=== PATIENT | male | born 1970 | race Caucasian/White ===

== ENCOUNTER 2023-11-26 17:20 | Emergency (ER) | payer OTHER, SELFPAY ==
[2023-11-26 17:23] VITALS: BP 172/95; PULSE 92; RESP 18; TEMP 36.7; O2SAT 99; BMI 27.1
--- NOTE | 2023-11-26 18:34 | CT_ITS ---
The [address] [address] Patient Name: DARIO WASHBURN MRN: [id number] date: 1970 Sex: M Assigned Patient Location: ER Current Patient Location: ED.MAIN Accession/Order Number: [id number] Exam Date: 11/26/2023 18:50 Report Date: 11/26/2023 19:22 At the request of: SHAY MOBLEY Procedure: CT lumbar spine wo con CT LUMBAR SPINE WITHOUT CONTRAST. HISTORY: back pain/ left foot drop COMPARISON: None. TECHNIQUE: CT of the lumbar spine without contrast. Sagittal and coronal reformatted images created. FINDINGS: BONY ALIGNMENT: There is normal lumbar lordosis. No spondylolisthesis. VERTEBRAL BODY: No acute fracture of the lumbar vertebral bodies. Intervertebral disc spaces are intact. CENTRAL CANAL/NEURAL FORAMINA: No high-grade central canal stenosis. There is moderate L4-5 central canal stenosis secondary to disc protrusion. There is severe left L4-5 neural foraminal stenosis secondary to disc protrusion/extrusion.. There are multilevel disc bulge. SOFT TISSUE: No mass or inflammation. VISUALIZED ABDOMEN/PELVIS: There is a 1 cm stone in the bladder. CT/CT lumbar spine wo con IMPRESSION: 1. No acute osseous abnormality of the lumbar spine. 2. Moderate L4-5 central canal stenosis. 3. Severe left L4-5 neural foraminal stenosis. Correlate clinically. Electronically authenticated by: DONNA MURPHY Date: 11/26/2023 19:22
--- NOTE | 2023-11-26 18:36 | ED.GENADUL1 ---
HPI - General Adult General Chief complaint: Extremity Injury, Lower Stated complaint: BACK PAIN, LEG NUMBNESS Time Seen by Provider: 11/26/23 18:34 Source: patient and family Mode of arrival: Wheelchair Limitations: physical limitation Limitations comment: difficulty ambulating History of Present Illness HPI narrative: is patient's here complaining of low back pain. He had a minor injury approximately week ago but his pains intensified greatly over the last two days. Says initially just certain is back now hurts in his buttock and goes all the way down his calf and his foot is experiencing weakness of his foot and tingling and numbness in his foot. He's never had back surgery before. He's not had any diagnostic imaging. He has not had bowel or bladder dysfunction. He's not had a fever. He tried to go to work the last couple days and was barely able to walk. He is scheduled to see his primary care doctor next Friday. He is not on any steroids or medications at this time. Related Data Home Medications Medication Instructions Recorded Confirmed No Known Home Medications 11/26/23 11/26/23 Allergies Allergy/AdvReac Type Severity Reaction Status Date / Time No Known Drug Allergies Allergy Verified 11/26/23 17:30 PFSH PFS Social History Smoking status: Never smoker Exam Narrative Exam Narrative: awake alert very pleasant moves about cautiously in very guarded. He's hasn't to move at all quite frankly He tries to stand on his tiptoes he has definite weakness and pain on his left side. The sitting position his deep tendon reflexes at patella are equal bilaterally Achilles is equal bilaterally. He has profound weakness of his dorsiflexors of his left foot. Straight leg raising on the right is negative, on the left reproduces pain but not classic radiculopathy symptoms. Constitutional Vital Signs, click to edit/add: Last Vital Signs Temp 98.0 F 11/26/23 17:23 Pulse 92 H 11/26/23 17:23 Resp 18 11/26/23 17:23 BP 172/95 H 11/26/23 17:23 Pulse Ox 99 11/26/23 17:23 O2 Del Method Room Air 11/26/23 17:23 Course Vital Signs Vital signs: Vital Signs Temperature 98.0 F 11/26/23 17:23 Pulse Rate 92 H 11/26/23 17:23 Respiratory Rate 18 11/26/23 17:23 Blood Pressure 172/95 H 11/26/23 17:23 Pulse Oximetry 99 11/26/23 17:23 Oxygen Delivery Method Room Air 11/26/23 17:23 Temperature 98.0 F 11/26/23 17:23 Pulse Rate 92 H 11/26/23 17:23 Respiratory Rate 18 11/26/23 17:23 Blood Pressure 172/95 H 11/26/23 17:23 Pulse Oximetry 99 11/26/23 17:23 Oxygen Delivery Method Room Air 11/26/23 17:23 Medical Decision Making MDM Narrative Medical decision making narrative: patient with previous minor injury now has foot drop and severe pain on the left side. We'll get CT scan and advised referral to local back specialist/neurosurgeon. We'll initiate steroids muscle relaxant analgesics. Care turned over to Dr. Alvarez Discharge Plan Discharge Chief Complaint: Extremity Injury, Lower Clinical Impression: Acute left lumbar radiculopathy Patient Disposition: Still a Patient Prescriptions / Home Meds: No Action No Known Home Medications
--- NOTE | 2023-11-26 18:41 | PC.NURSE ---
Patient complains of mid to low back pain that radiates down left leg.
[2023-11-26] MEDS: PREDNISONE 20 MG TABLET 40 MG PO (19:01)
[2023-11-26 19:03] VITALS: PULSE 73; RESP 20; O2SAT 99
--- NOTE | 2023-11-26 19:48 | ED.GENADUL1 ---
HPI - General Adult General Chief complaint: Extremity Injury, Lower Stated complaint: BACK PAIN, LEG NUMBNESS Time Seen by Provider: 11/26/23 18:34 Source: patient and family Mode of arrival: Wheelchair Limitations: physical limitation Limitations comment: difficulty ambulating History of Present Illness HPI narrative: This 53-year-old male was signed out to me at shift change pending CT scan of the lumbar spine. Since for evaluation of intermittent moderate to severe low back pain radiating down the left leg with numbness and tingling and foot drop on the left. This started after he bent over recently. There was no injury. He has not had any loss of bowel or bladder control. CT scan of the lumbar spine shows L4-L5 disc disease and a bladder stone. The results of the CT scan were discussed with the patient and he was given a copy of his scan on a disc to share with neurosurgery. He has a follow-up appointment next Friday with Chrissie Guardado for further evaluation and treatment. He was instructed to return to emergency department for worsening pain, loss of bowel or bladder control increasing neurologic symptoms or any concerns. Related Data Home Medications Medication Instructions Recorded Confirmed No Known Home Medications 11/26/23 11/26/23 Allergies Allergy/AdvReac Type Severity Reaction Status Date / Time No Known Drug Allergies Allergy Verified 11/26/23 17:30 PFSH PFS Social History Smoking status: Never smoker Exam Constitutional Vital Signs, click to edit/add: Last Vital Signs Temp 98.0 F 11/26/23 17:23 Pulse 73 11/26/23 19:03 Resp 20 11/26/23 19:03 BP 172/95 H 11/26/23 17:23 Pulse Ox 99 11/26/23 19:03 O2 Del Method Room Air 11/26/23 19:03 Course Vital Signs Vital signs: Vital Signs Temperature 98.0 F 11/26/23 17:23 Pulse Rate 92 H 11/26/23 17:23 Respiratory Rate 18 11/26/23 17:23 Blood Pressure 172/95 H 11/26/23 17:23 Pulse Oximetry 99 11/26/23 17:23 Oxygen Delivery Method Room Air 11/26/23 17:23 Temperature 98.0 F 11/26/23 17:23 Pulse Rate 73 11/26/23 19:03 Respiratory Rate 20 11/26/23 19:03 Blood Pressure 172/95 H 11/26/23 17:23 Pulse Oximetry 99 11/26/23 19:03 Oxygen Delivery Method Room Air 11/26/23 19:03 Medical Decision Making MDM Narrative Medical decision making narrative: See transfer of care note in HPI Medical Records Medical records narrative: The [address] [address] [address] Scan Report Signed Patient: DARIO WASHBURN MR#: [id number] : 1970 Acct:[id number] Age/Sex: 53 / M ADM Date: 11/26/23 Loc: ER Attending Dr: Ordering Physician: Winston Holliday Date of Service: 11/26/23 Procedure(s): CT lumbar spine wo con Accession Number(s): [id number] cc: Main Ghosh M.D.~ The [place] [address] Patient Name: DARIO WASHBURN MRN: [id number] date: 1970 Sex: M Assigned Patient Location: ER Current Patient Location: ED.MAIN Accession/Order Number: [id number] Exam Date: 11/26/2023 18:50 Report Date: 11/26/2023 19:22 At the request of: WINSTON HOLLIDAY Procedure: CT lumbar spine wo con CT LUMBAR SPINE WITHOUT CONTRAST. HISTORY: back pain/ left foot drop COMPARISON: None. TECHNIQUE: CT of the lumbar spine without contrast. Sagittal and coronal reformatted images created. FINDINGS: BONY ALIGNMENT: There is normal lumbar lordosis. No spondylolisthesis. VERTEBRAL BODY: No acute fracture of the lumbar vertebral bodies. Intervertebral disc spaces are intact. CENTRAL CANAL/NEURAL FORAMINA: No high-grade central canal stenosis. There is moderate L4-5 central canal stenosis secondary to disc protrusion. There is severe left L4-5 neural foraminal stenosis secondary to disc protrusion/extrusion.. There are multilevel disc bulge. SOFT TISSUE: No mass or inflammation. VISUALIZED ABDOMEN/PELVIS: There is a 1 cm stone in the bladder. CT/CT lumbar spine wo con IMPRESSION: 1. No acute osseous abnormality of the lumbar spine. 2. Moderate L4-5 central canal stenosis. 3. Severe left L4-5 neural foraminal stenosis. Correlate clinically. Electronically authenticated by: DONNA MURPHY Date: 11/26/2023 19:22 Discharge Plan Discharge Chief Complaint: Extremity Injury, Lower Clinical Impression: Acute left lumbar radiculopathy, Foot drop, Bladder stone Patient Disposition: Home, Self-Care Time of Disposition Decision: 19:40 Prescriptions / Home Meds: No Action No Known Home Medications Instructions: Foot Drop (ED), Lumbar Radiculopathy (ED), Back Pain (ED), Bladder Stones (ED) Additional Instructions: Return to the emergency department for worsening weakness numbness or neurologic symptoms or loss of bowel or bladder control. Stand Alone Forms: Portal Instructions Discharge Date/Time: 11/26/23 20:18
[2023-11-26] MEDS: OXYCODONE HCL/ACETAMINOPHEN 5MG/325MG 1 TAB PO (20:01)
[2023-11-26] MEDS: OXYCODONE HCL/ACETAMINOPHEN 5MG/325MG 2 TAB PO (20:01)
== END 2023-11-26 20:18 | disposition home or self-care (01) ==
PROVIDERS: Emergency Provider Emergency Medicine; PCP Family Medicine
DX: M54.16 Radiculopathy, lumbar region (principal); M21.372 Foot drop, left foot; N21.0 Calculus in bladder
CPT/HCPCS: 72131; 99284; J7512

== ENCOUNTER 2023-12-09 12:58 | Outpatient (OUT) | payer OTHER, SELFPAY ==
--- NOTE | 2023-12-09 | CONS_ITS ---
PROCEDURE DATE: 12/09/2023 PROCEDURE: Trigger point injection left erector spinae muscle performed in the office. PREOPERATIVE DIAGNOSIS: Pain secondary to left L4 and L5 radiculopathy and myofascial spasm of the left erector spinae muscle. POSTOPERATIVE DIAGNOSIS: Pain secondary to left L4 and L5 radiculopathy and myofascial spasm of the left erector spinae muscle. SOLUTION USED FOR INJECTION: 2 mL of 2% lidocaine, 2 mL of 0.25% Marcaine and 10 mg of Kenalog, total of 5 mL, and 2 mL used for the injection. IMMEDIATE COMPLICATIONS: None. PROCEDURE: After informed consent was obtained from the patient, placed in the prone position. Skin overlying the area was prepped with alcohol. A 25 gauge, 1 ?? needle was inserted into the substance of the left erector spinae muscle at the L5 level. Needle tip advanced until there was a twitch response, at which point we injected 2 mL of solution. No indication of intravascular or intraneural or intrathecal needle tip placement or injection was noted. Post procedure, patient reports reduction of pain symptoms. Discharged home after meeting criteria. TE
--- NOTE | 2023-12-09 | CONS_ITS ---
CONSULTATION DATE: 12/09/2023 TO: Chrissie Guardado CNP CHIEF COMPLAINT: Includes left leg pain, left lower back pain. HISTORY OF PRESENT ILLNESS: Review of systems, past medical/surgical history were obtained and documented on the health questionnaire and is available upon request. He is a 65-year-old male, reports he was in his usual state of health until approximately three weeks ago. He reports he bent over to pick something up and had sudden onset of pain since that time, rating at least 8-9/10 pain, sharp in character with a deep aching component, with a burning component as well. Exacerbated with activities such as standing, walking and performing transitioning maneuvers. He feels most comfortable in the semi-recumbent position or with his leg crossed. Denies any change in bowel and bladder habits but reports some tingling/numbness of his left lower extremity with weakness. MEDICATION: Current medication includes Robaxin 750 q. 6 hours, which offers him only marginal relief; Percocet which he has not been using secondary to ineffectiveness, and he completed a Medrol Dosepak two weeks ago, which he reports offered him also marginal reduction in pain symptoms. He has been undergoing activity modification and has been trialing a home exercise program since the onset of symptomatology. He also has been consuming significant amounts of nonsteroidals in the form of ibuprofen 800 mg 1-3 times a day, depending on his symptomatology since on the onset of his symptoms. EXAM: His examination is notable for the patient having hypoesthesia along the left L4 and L5 dermatome, weakness of his left quadriceps and anterior tibialis, depressed patellar reflex. Straight leg raise was equivocally positive at approximately 90 degrees. The strength of his left quadriceps and anterior tibialis was rated at 3/5 strength. There were no clinical signs consistent with myelopathy involving his lower extremities. Patient also had severe myofascial spasm of his lumbar paravertebral muscles on the left side, namely involving his left erector spinae muscle at the L5 level. IMPRESSION: Our impression is patient appears to have pain secondary to left L4-L5 radiculopathy, myofascial spasm, failed conservative therapy. RECOMMENDATIONS: I have recommended he consider proceeding with a trigger point injection on today?s visit of his left erector spinae muscle at the L5 level. The patient to have a left sided L4 and L5 transforaminal epidural steroid injection under fluoroscopic guidance, under the care of Dr. Carreno. I have discontinued Robaxin secondary to ineffectiveness. Will trial him on baclofen 10 mg pills, half to one pill b.i.d. as tolerated. I have placed him on Zonegran 100 mg at h.s. and last, we initiated aquatic therapy. As part of providing excellent, safe, comprehensive care, the following was completed at our patient's visit: 1. A medication reconciliation and review to ensure accurate knowledge of current/active medications, including asking our patients to inform us about any [id number]-sstdbly medications or herbal remedies/nutritional supplements/alternative remedies. 2. A review to specifically ensure our patients have had annual screening for: elevated body mass index (BMI, see intake chart for exact total), tobacco use, screening for depression, and screening for unhealthy alcohol use. When screening is concerning, patients are provided with education and the specific recommendation to discuss the concerning health issue and treatment options with their primary care provider. TE
== END 2023-12-09 12:59 | disposition home or self-care (01) ==
LOC: PM 12:59
PROVIDERS: PCP Nurse Practitioner Family; Visit Provider Anesthesiology Pain Medicine
DX: M62.838 Other muscle spasm (principal); M54.16 Radiculopathy, lumbar region
CPT/HCPCS: 20552; G0463

== ENCOUNTER 2023-12-10 09:24 | Outpatient (OUT) | payer OTHER, SELFPAY ==
--- NOTE | 2023-12-10 09:54 | XR_ITS ---
[address] [address] Patient Name: DARIO WASHBURN MRN: [id number] date: 1970 Sex: M Assigned Patient Location: MRI Current Patient Location: MRI Accession/Order Number: [id number] Exam Date: 12/10/2023 09:56 Report Date: 12/10/2023 10:24 At the request of: DEREK MERAZ Procedure: XR foreign body eye EXAMINATION: XR foreign body eye HISTORY: Foreign Body Eye COMPARISON: No relevant comparison available. FINDINGS: ORBITS: Negative for a metallic foreign body. OTHER: Negative. XR/XR foreign body eye IMPRESSION: No metallic foreign body in the orbits Electronically authenticated by: ERICK BLANKENSHIP Date: 12/10/2023 10:24
--- NOTE | 2023-12-10 10:00 | MR_ITS ---
[address] [address] Patient Name: DARIO WASHBURN MRN: [id number] date: 1970 Sex: M Assigned Patient Location: MRI Current Patient Location: MRI Accession/Order Number: [id number] Exam Date: 12/10/2023 10:00 Report Date: 12/10/2023 11:20 At the request of: DEREK MERAZ Procedure: MR lumbar spine wo con EXAMINATION: MR lumbar spine wo con HISTORY: Lumbar Disc Disease With Radiculopathy M51.16 COMPARISON: No relevant comparison available. TECHNIQUE: A variety of imaging planes and parameters were utilized for visualization of suspected pathology. FINDINGS: For the purposes of numbering, sagittal T2 image # 8 extends from the T11-T12 vertebral body superiorly to the S2-S3 level inferiorly. PARASPINAL AREA: Normal with no visible mass. BONES: Normal alignment with no acute fracture or spondylolisthesis. Mildly heterogeneous marrow signal likely age-related change. 8 mm signal abnormality in the T12 vertebral body. A hemangioma is favored. Mild to moderate degenerative spondylosis CORD/CAUDA EQUINA: Normal caliber, contour, and signal intensity. DISC LEVELS: 12-L1: No significant disc/facet abnormality, spinal stenosis, or foraminal stenosis. L1-L2: No significant disc/facet abnormality, spinal stenosis, or foraminal stenosis. L2-L3: Disc desiccation. No disc bulge or herniation. No central or foraminal stenosis L3-L4: No significant disc/facet abnormality, spinal stenosis, or foraminal stenosis. L4-L5: Posterior central lateral and foraminal area of signal abnormality posterior to the L4 vertebral body measuring 2.0 cm in craniocaudal dimension by 1.1 cm in anterior posterior dimension by 1.9 cm in transverse dimension best seen on sagittal image 6, axial image 23 extending into the left neuroforamen inseparable from the nerve root. Mild disc space narrowing and disc desiccation. Mild diffuse disc/osteophyte complex. No right foraminal stenosis. L5-S1: No significant disc/facet abnormality, spinal stenosis, or foraminal stenosis. MR/MR lumbar spine wo con IMPRESSION: 2.0 x 1.1 x 1.9 cm area of signal abnormality posterior to the left L4 vertebral body extending into the neural foramen. A disc herniation of the extrusion type is favored. Consider MRI with contrast to evaluate enhancement characteristics Electronically authenticated by: ERICK BLANKENSHIP Date: 12/10/2023 11:20
== END 2023-12-10 09:25 | disposition home or self-care (01) ==
LOC: MRI 09:24
PROVIDERS: PCP Nurse Practitioner Family; Visit Provider Nurse Practitioner Family
DX: M51.16 Intervertebral disc disorders with radiculopathy, lumbar region (principal)
CPT/HCPCS: 70030; 72148

== ENCOUNTER 2023-12-26 15:23 | Outpatient (RCR) | payer OTHER, SELFPAY | END 2024-03-23 16:46 | disposition home or self-care (01) | LOC: PT 15:23 | PROVIDERS: PCP Nurse Practitioner Family; Visit Provider Anesthesiology Pain Medicine | DX: M54.16 Radiculopathy, lumbar region (principal) | CPT/HCPCS: 97110; 97112; 97140; 97163 ==